=== PATIENT | male | born 1970 | race Caucasian/White ===

== ENCOUNTER → 2017-04-30 | Outpatient (CLI) | payer OTHER ==
[~2017-04-30] MED LIST: ALLDSR/24 PO; FEXO1TAB58 PO; MONT1TAB3 PO; PRLSR20 PO; SNG10 PO; VNTHFA/IN INH
[2017-04-30 13:27] LABS: BASO % 0.6 %; BASO ABS # 0.04 K/uL (0-0.2); EOS % 1.2 %; EOS ABS # 0.08 K/uL (0-0.5); HEMATOCRIT 42.3 % (42-52); HEMOGLOBIN 15.3 g/dL (14.0-18.0); IG# 0.02 K/uL (0.00-0.02); LYMPH % 21.9 %; LYMPH ABS # 1.42 K/uL (1.2-3.4); MEAN CELL VOLUME 92.2 fL (80-100); MEAN CORPUSCULAR HEMOGLOBIN 33.3 pg (25-34); MEAN CORPUSCULAR HGB CONC 36.2 g/dl (32-36); MEAN PLATELET VOLUME 12.1 fL (7.4-10.4); MONO % 12.4 %; NEUT % 63.6 %; NEUT ABS # 4.11 K/uL (1.4-6.5); PLATELET COUNT 169 K/uL (130-400); RED CELL DISTRIBUTION WIDTH CV 12.2 % (11.5-14.5); RED CELL DISTRIBUTION WIDTH SD 41.2 fL (36.4-46.3); WHITE BLOOD COUNT 6.47 K/uL (4.8-10.8)
[2017-04-30 14:24] LABS: BLOOD UREA NITROGEN 12 mg/dl (7-18); CARBON DIOXIDE 25 mmol/L (21-32); CREATININE 0.73 mg/dl (0.60-1.40); GLUCOSE 96 mg/dl (70-99); POTASSIUM 3.8 mmol/L (3.5-5.1); SODIUM 136 mmol/L (136-145)
== END | disposition home or self-care (01) ==
LOC: C.LABBC 11:14
PROVIDERS: ATTEND Orthopaedic Surgery
DX: M25.512 Pain in left shoulder (principal)

== ENCOUNTER → 2017-05-20 | Day surgery (SDC) | payer OTHER ==
[2017-04-30 14:39] VITALS: Ht 165.1 cm; Wt 79.5 kg
[~2017-05-20] VITALS: Ht 165.1 cm; Wt 79.5 kg
[~2017-05-20] MED LIST changes: -ALLDSR/24 PO; +ATROPINE SULFATE 0.1 MG/ML 5ML SYR IV PRN; +BUPIVACAINE 0.25% 30 ML VIAL ONE; +CEFAZOLIN 2000MG IV PUSH 15 ML IV SCH; +DEXAMETHASONE SOD INJ 4 MG/ML VIAL ONE; +EpHEDrine SULFATE INJ 50 MG/ML AMP IV PRN; +EpINEphrine INJ 1MG/ML AMP 1 MG/ML AMP ONE; +FENTANYL CITRATE INJ 50 MCG/1 ML 2 ML VIAL IV PRN; +FENTANYL CITRATE INJ 50 MCG/1 ML 2 ML VIAL ONE; +HydrALAZINE HCL 20 MG/ML VIAL IV. SCH; +HydrALAZINE HCL 20 MG/ML VIAL ONE; +KETO10TA PO; +KETOROLAC TROMETHAMINE 30 MG/ML VIAL IV. PRN; +LACTATED RINGER'S 1000ML 1,000 ML IV SCH; +LIDOCAINE HCL 2% 2 ML VIAL (20MG/ML) ONE; +MIDAZOLAM HCL 1 MG/ML 2ML VIAL ONE; +NURSING VERBAL MED ORDER ONE; +ONDANSETRON INJ 2 MG/ML 2 ML VIAL IV PRN; +ONDANSETRON INJ 2 MG/ML 2 ML VIAL ONE; +OXYC-57 PO; +OXYCODONE/ACETAMINOPHEN 5-325 TAB PO PRN; +PROPOFOL IV EMULSION 10 MG/ML 20 ML VIAL IV ONE; +ROPIVACAINE 0.5% 5 MG/ML 30 ML VIAL ONE; -SNG10 PO; +SODIUM CHLORIDE 0.9% 1000ML 1,000 ML IV SCH
--- NOTE | 2017-05-20 08:51 | History & Physical Bridge Note ---
H&P Re-Evaluation Bridge Note: I have examined the patient, reviewed the History & Physical and in the interval since the performance of the History & Physical I have noted the following changes of clinical significance: No changes noted
--- NOTE | 2017-05-20 10:32 | [facility] Post Operative Brief Note ---
Immediate Operative Summary Operative Date May 20, 2017. Pre-Operative Diagnosis Acromioclavicular arthritis right shoulder Post-Operative Diagnosis Same as preop Procedure(s) Performed Right Shoulder Arthroscopy With Acromioplasty and Distal Clavicle Resection Surgeon Dr. Rico Muffle Operator Surgeon(s) Eyad Thapa PA-C Estimated Blood Loss 5 mL Findings Consistent with Post-Op Diagnosis Specimens None Anesthesia Type General Regional Complication(s) none Disposition Disposition: Recovery Room / PACU
--- NOTE | 2017-05-20 10:41 | Discharge Instructions-SurgCtr ---
Discharge Instructions Date of Service May 20, 2017. Visit Reason for Visit: Right Shoulder Acrimioclavicular Arthritis Discharge Discharge Diagnosis / Problem: SAME ABOVE Discharge Goals Goal(s): Decrease discomfort, Improve function Activity Recommendations Activity Limitations: as noted below Lifting Limitations: gradually increase as tolerated Exercise/Sports Limitations: gradually increase as tolerated Shower/Bathe: tomorrow Anesthesia . Post Anesthesia Instructions: If you have had General Anesthesia or IV Sedation: * Do not drive today. * Resume driving when surgeon permits. * Do not make important decisions or sign legal documents today. * Call surgeon for: 1. Temperature elevations greater than 101 degrees F. 2. Uncontrollable pain. 3. Excessive bleeding. 4. Persistent nausea and vomiting. 5. Medication intolerance (nausea, vomiting or rash). * For nausea and vomiting use only clear liquids such as: tea, soda, bouillon until nausea subsides, then gradually increase diet as tolerated. * If you have any concerns or questions, call your surgeon's office. If physician is unavailable and it is an emergency, call 911 or go to the nearest emergency room. . Instructions / Follow-Up Instructions / Follow-Up MEDICATIONS: * Resume previous medications unless instructed otherwise by your surgeon. * Always take pain medication on a full stomach or with food to avoid upset stomach. * Do not drink alcohol or drive while taking narcotics. * Ibuprofen or Tylenol may be taken if narcotic not needed. SPECIAL CARE INSTRUCTIONS: __ None _X_ Keep extremity elevated and iced x 48 hours; apply ice 20-30 minutes 8-10 times/day. May remove at night. _X_ Sling (WEAR FOR COMFORT ONLY) __24 hrs/day __ Remove at night __ Shoulder Immobilizer __ 24 hrs/day __ Remove at night _X_ Dressing __ Maintain until seen in office, may shower with plastic over site _X_ Remove dressings in 24-48 hours and then may shower _X_ Cover incisions with band-aids after showering __ Do not remove steri-strips Call physician if chills or temperature rises above 102 degrees or pain unrelieved by prescribed pain medications at . . Diet Recommendations Home Diet: no limitations Fluid Restriction: None Procedures Procedures Performed: Right Shoulder Arthroscopy With Acromioplasty and Distal Clavicle Resection Pending Studies Studies pending at discharge: no Work Instructions Return To Work: after follow-up Lifting Limitations: none Medical Emergencies . Who to Call and When: Medical Emergencies: If at any time you feel your situation is an emergency, please call 911 immediately. . Non-Emergent Contact Non-Emergency issues call your: Primary Care Provider Call Non-Emergent contact if: you have a fever, temperature is above 101.5 . . "Provider Documentation" section prepared by Eyad Thapa. .
--- NOTE | 2017-05-20 11:26 | OPERATIVE REPORT ---
DATE OF OPERATION: 05/20/2017 PREOPERATIVE DIAGNOSIS: Acromioclavicular joint arthritis of the right shoulder. POSTOPERATIVE DIAGNOSIS: Same. PROCEDURE: Right shoulder diagnostic arthroscopy with limited debridement, distal clavicle resection, and acromioplasty. SURGEON: Dr. Garland Rico. RESIDENTIAL COORDINATOR: Edward Thapa PA-C, whose assistance was necessary for positioning the arm, helping with instrumentation and closure. ANESTHESIA: General with a right interscalene nerve block. COMPLICATIONS: None. CONDITION: Stable to PACU. INDICATIONS: Karthikyean is a pleasant 46-year-old male who has been dealing with chronic right shoulder pain. MRI and clinical examination were diagnostic for AC joint arthritis of the right shoulder. After failing conservative treatment, he elected to undergo arthroscopy. DESCRIPTION OF PROCEDURE: On 05/20/2017, he arrived at [facility] for the above procedure. He was seen in the preoperative holding area and the operative extremity was identified and signed. He was given a preoperative antibiotic and a right interscalene nerve block. He was taken back to the operating room, laid on the table in the supine position and put under general anesthesia. He was then put into the beachchair position. The right shoulder was prepped and draped in sterile fashion. Time-out was done and the patient's operative extremity was properly identified. A scope was introduced into the posterior portal. Diagnostic arthroscopy showed no cartilage damage to the humeral head or the glenoid. There was a little fraying of the anterior labrum. The biceps tendon was intact. The supraspinatus, infraspinatus, teres minor and subscapularis were all checked and intact. An anterior portal was made. A shaver was used to do a limited debridement of the intraarticular structures and the biceps looked good. Then the scope was then put into the subacromial space. A lateral portal was made. A shaver was used to do a complete subacromial and subdeltoid bursectomy. An ablator was used to tease the coracoacromial ligament off the undersurface of the acromion and a 5-0 addie was used to complete an acromioplasty of a Bigliani type 3 acromion. A shaver was used to remove any excess debris. The bursal side of the rotator cuff was examined extensively without evidence of tear. Attention was then turned to the distal clavicle. Through an anterior portal, a shaver and ablator were used to skeletonize the distal clavicle. A 5-0 addie was then used to resect the distal 5 mm from the clavicle. Complete resection was checked under direct visualization. A shaver was used to remove any excess debris. The bursal side of the rotator cuff was examined extensively once again. No additional pathology was found. Arthroscopic instruments were removed from the shoulder. Portal sites were closed with 3-0 nylon. He was then placed in a soft dressing and a regular arm sling. He was then extubated, transferred to a litter and taken to the postanesthesia care unit in stable condition. He tolerated the procedure well. I attest to the content of the Intraoperative Record and any orders documented therein. Any exception s are noted below.
[2017-05-20 11:40] VITALS: TEMP 36.5
--- NOTE | 2017-05-20 12:15 | Anesthesia Progress Nt - [facility] ---
Anesthesia Post Op Note Date & Time May 20, 2017 at 12:15 Vital Signs Pain Intensity: 0 Vital Signs Past 12 Hours Date Time Temp Pulse Resp B/P (MAP) Pulse Ox O2 Delivery O2 Flow Rate FiO2 05/20/17 11:40 36.5 75 18 143/96 (112) 96 Room Air 05/20/17 11:31 81 15 05/20/17 11:31 83 15 94 05/20/17 11:30 135/98 05/20/17 11:30 36.4 74 17 135/98 95 Room Air 05/20/17 11:26 81 16 94 05/20/17 11:26 79 16 05/20/17 11:25 132/96 05/20/17 11:21 78 15 05/20/17 11:21 76 15 133/96 94 05/20/17 11:20 146/109 05/20/17 11:16 72 17 143/109 95 05/20/17 11:16 74 17 05/20/17 11:15 140/102 05/20/17 11:14 140/108 05/20/17 11:13 148/107 05/20/17 11:11 69 16 95 05/20/17 11:11 70 16 05/20/17 11:10 150/106 05/20/17 11:06 68 15 05/20/17 11:06 68 15 95 05/20/17 11:05 143/107 05/20/17 11:01 67 16 05/20/17 11:01 67 16 96 05/20/17 11:00 148/104 05/20/17 10:56 67 15 99 05/20/17 10:56 66 15 05/20/17 10:55 143/102 05/20/17 10:51 64 17 99 05/20/17 10:51 64 17 05/20/17 10:50 139/101 05/20/17 10:46 66 14 05/20/17 10:46 63 14 99 05/20/17 10:45 144/103 05/20/17 10:42 147/104 05/20/17 10:41 68 05/20/17 10:41 36.3 66 12 147/104 98 Mask 6 05/20/17 10:41 68 98 05/20/17 09:41 86 05/20/17 09:41 83 18 99 05/20/17 09:40 155/110 05/20/17 09:38 88 22 99 05/20/17 09:38 90 05/20/17 09:35 153/114 05/20/17 09:33 85 34 98 05/20/17 09:33 87 05/20/17 09:30 153/108 05/20/17 09:28 84 14 100 05/20/17 09:28 84 05/20/17 09:25 152/112 05/20/17 09:23 81 05/20/17 09:23 82 21 98 05/20/17 09:20 159/115 05/20/17 09:18 85 16 99 05/20/17 09:18 85 05/20/17 09:15 136/107 05/20/17 09:13 83 05/20/17 09:13 83 21 98 05/20/17 09:10 150/113 05/20/17 09:08 77 05/20/17 09:08 77 17 99 05/20/17 09:05 146/110 05/20/17 09:03 74 05/20/17 09:03 74 0 96 05/20/17 08:58 73 0 96 05/20/17 08:58 73 05/20/17 08:53 73 05/20/17 08:53 72 0 96 05/20/17 08:48 74 0 96 05/20/17 08:48 74 05/20/17 08:43 69 0 97 05/20/17 08:43 69 05/20/17 08:38 74 0 96 05/20/17 08:38 72 05/20/17 08:33 73 05/20/17 08:33 72 0 96 05/20/17 08:28 72 05/20/17 08:28 71 0 96 05/20/17 08:23 76 05/20/17 08:23 76 0 96 05/20/17 08:18 80 05/20/17 08:18 82 0 97 05/20/17 08:13 0 05/20/17 08:08 0 05/20/17 08:03 0 05/20/17 08:00 145/104 05/20/17 07:59 150/104 05/20/17 07:59 36.6 73 20 150/104 (119) 96 Room Air 05/20/17 07:58 0 Notes Mental Status: alert / awake / arousable, participated in evaluation Pt Amnestic to Procedure: Yes Nausea / Vomiting: adequately controlled Pain: adequately controlled Airway Patency, RR, SpO2: stable & adequate BP & HR: stable & adequate Hydration State: stable & adequate Anesthetic Complications: no major complications apparent
[2017-05-20 12:18] VITALS: BP 140/90; PULSE 69; O2SAT 96
== END | disposition home or self-care (01) ==
LOC: X.SURG 07:40
PROVIDERS: ATTEND Orthopaedic Surgery
DX: M19.011 Primary osteoarthritis, right shoulder (principal); J45.909 Unspecified asthma, uncomplicated; K21.9 Gastro-esophageal reflux disease without esophagitis